=== PATIENT | female | born 1940 | race Caucasian/White ===

== ENCOUNTER 2019-01-22 09:35 | Emergency (ER) | payer OTHER ==
[2019-01-22 10:30] VITALS: BP 188/93
--- NOTE | 2019-01-22 11:20 | UC ---
General HPI - HPI Summary HPI Summary: Yesterday was out in the garden and noticed a tick bite on her chest. At most the tick was on her chest for 4 hours. Has tick with her that is not engorged. She put alcohol on it and this morning woke and noticed redness and discomfort at the site. Had doxycycline 100 mg prescribed to her from 2013 and took one dose. Called pharmacy and asked for a refill but was unable to. Recommend she go to urgent care. States she is an avid hiker but keeps well covered when she hikes. Meds: reviewed - History of Current Complaint Chief Complaint: UCGeneralIllness Stated Complaint: TICK BITE Time Seen by Provider: 01/22/19 10:58 Pain Intensity: 0 - Allergy/Home Medications Allergies/Adverse Reactions: Allergies Allergy/AdvReac Type Severity Reaction Status Date / Time olmesartan [From Benicar] Allergy Diarrhea Verified 01/22/19 10:21 Home Medications: Home Medications Torsemide 5 mg PO DAILY 01/22/19 [History Confirmed 01/22/19] PMH/Surg Hx/FS Hx/Imm Hx Previously Healthy: Yes Cardiovascular History: Hypertension - Surgical History Surgical History: Yes Surgery Procedure, Year, and Place: Ovarian cyst rupture age 32. R elbow repair 2015 - Social History Alcohol Use: Daily Alcohol Amount: usually daily, wine with dinner Substance Use Type: None Smoking Status (MU): Former Smoker Type: Cigarettes Have You Smoked in the Last Year: No When Did the Patient Quit Smoking/Using Tobacco: smoked as a teenager Review of Systems All Other Systems Reviewed And Are Negative: Yes Physical Exam Triage Information Reviewed: Yes Appearance: Well-Appearing Vital Signs: Initial Vital Signs Temp 98.1 F 01/22/19 10:24 Pulse 76 01/22/19 10:24 Resp 16 01/22/19 10:24 BP 188/93 01/22/19 10:24 Pulse Ox 100 01/22/19 10:24 Skin Exam: Other - raised erythematous circular lesion, no bulls eye. No fluctuance or induration Course/Dx - Course Course Of Treatment: This is a 78 yr old with a tick bite Discussed at length there is no indication for prophylaxis or treatment for lyme Local tick bite reaction Plan No indication that the tick bite will transmit lyme No indication for treatment Monitor for bull's eye lesion or flu like symptoms - if this happens follow up with PCP or return to urgent care Can apply hydrocortisone cream - over the counter to area for itching as needed Blood pressure elevated - recommend a recheck and follow up with PCP - Diagnoses Provider Diagnosis: Tick bite Discharge - Sign-Out/Discharge Documenting (check all that apply): Patient Departure All imaging exams completed and their final reports reviewed: No Studies - Discharge Plan Condition: Good Disposition: HOME Patient Education Materials: Insect Bite or Sting (ED) Referrals: No Primary Care Phys,NOPCP [Primary Care Provider] - Additional Instructions: No indication that the tick bite will transmit lyme No indication for treatment Monitor for bull's eye lesion or flu like symptoms - if this happens follow up with PCP or return to urgent care Can apply hydrocortisone cream - over the counter to area for itching as needed - Billing Disposition and Condition Condition: GOOD Disposition: Home
== END 2019-01-22 11:18 | disposition home or self-care (01) ==
LOC: UCEAST 09:35
DX: S20.369A Insect bite (nonvenomous) of unspecified front wall of thorax, initial encounter (principal); I10 Essential (primary) hypertension; R03.0 Elevated blood-pressure reading, without diagnosis of hypertension; Z88.8 Allergy status to other drugs, medicaments and biological substances; Z87.891 Personal history of nicotine dependence; W57.XXXA Bitten or stung by nonvenomous insect and other nonvenomous arthropods, initial encounter; Y92.9 Unspecified place or not applicable
CPT/HCPCS: 99201; G0463